=== PATIENT | female | born 1985 | race Caucasian/White ===

== ENCOUNTER 2018-11-11 11:45 | Inpatient (IN) | payer OTHER ==
[~2018-11-11 11:45] MED LIST: CITRIC ACID/SODIUM CITRATE 30 ML UNIT-DOSE CUP PO ONE; ELECTROLYTE-148 SOLN 1,000 ML IV SCH
[2018-11-11 12:19] VITALS: BMI 35.0
[2018-11-11] MEDS ORDERED: ELECTROLYTE-148 SOLN 1,000 ML IV SCH ×2 (12:45→14:15)
[2018-11-11] MEDS ORDERED: morphine SULFATE/PF 0.5 MG/ML (2cc Syringe - QUVA) EP ONE (13:53)
[2018-11-11] MEDS ORDERED: ONDANSETRON 4 MG/2 ML VIAL IVPUSH PRN (13:53)
[2018-11-11] MEDS ORDERED: morphine SULFATE/PF 0.5 MG/ML (2cc Syringe - QUVA) ONE (14:00)
[2018-11-11] MEDS ORDERED: ceFAZolin SODIUM 1 GM VIAL ONE (14:01)
[2018-11-11] MEDS ORDERED: CITRIC ACID/SODIUM CITRATE 30 ML UNIT-DOSE CUP PO ONE (14:03)
--- NOTE | 2018-11-11 14:21 | HP ---
Past Medical History - Primary Care Physician PCP:: Jori Galvez - Admission Chief Complaint: 39 weeks , previous c/s , for repeat c/s History of Present Illness: 32 yo f , 39 weeks with previous c/s , for repeat c/s ,risks discussed , ulteratives explained, cx clp, vx -4 mi, fhr cat 1, no contraction History Source: Patient Limitations to Obtaining History: No Limitations - Past Medical History ...: 2 ...Para: 1 ...Term: 1 ...: 0 ...Spon : 0 ...Induced : 0 ...LMP: 02/07/18 ... Weeks Gestation by Dates: 39.5 ...EDC by Dates: 11/14/18 ...EDC by Sono: 11/14/18 - Past Surgical History Past Surgical History: Yes: Hx Myomectomy: No Hx Transabdominal Cerclage: No - Smoking History Smoking history: Never smoked Have you smoked in the past 12 months: No - Alcohol/Substance Use Hx Alcohol Use: No - Social History Usual Living Arrangement: Yes: With Spouse History of Recent Travel: No Home Medications - Allergies Allergies/Adverse Reactions: Allergies Allergy/AdvReac Type Severity Reaction Status Date / Time No Known Allergies Allergy Verified 11/11/18 12:20 - Home Medications Home Medications: Ambulatory Orders Ceftriaxone [Rocephin -] 500 mg PO BID 11/11/18 Ferrous Sulfate 325 tab PO BID 11/11/18 Tablet 1 tab PO DAILY 11/11/18 Ibuprofen [Motrin -] 600 mg PO QID #28 tablet 11/13/18 Review of Systems - Review of Systems Constitutional: reports: No Symptoms Eyes: reports: No Symptoms HENT: reports: No Symptoms Neck: reports: No Symptoms Cardiovascular: reports: No Symptoms Respiratory: reports: No Symptoms Gastrointestinal: reports: No Symptoms Genitourinary: reports: No Symptoms Musculoskeletal: reports: No Symptoms Integumentary: reports: No Symptoms Neurological: reports: No Symptoms Endocrine: reports: No Symptoms Hematology/Lymphatic: reports: No Symptoms Psychiatric: reports: No Symptoms Physical Exam - Maternity Constitutional: Yes: Well Nourished, No Distress, Calm Eyes: Yes: WNL, Conjunctiva Clear, EOM Intact HENT: Yes: WNL, Atraumatic, Normocephalic Neck: Yes: WNL, Supple, Trachea Midline Cardiovascular: Yes: WNL, Regular Rate and Rhythm Breast(s): Yes: WNL - Abdominal Exam/OB Fundal Height: 40 Number of Fetuses: Single Presentation: Vertex Contractions: No Regularity: Irritability Intensity: Unaware Monitor Mode: External Heart Rate Location: [facility] Category: I Accelerations: Uniform Decelerations: None - Vaginal Exam/OB Vaginal Bleediing: No Speculum Exam: No Dilatation (cm): closed Effacement (%): 0 Amniotic Membrane Status: Intact Presentation: Vertex/Position Station: -4 - Physical Exam Musculoskeletal: Yes: WNL Edema: LLE: Trace, RLE: Trace ...Motor Strength: WNL Psychiatric: Yes: WNL Hemorrhage Risk Assessment - Risk Factors Medium Risk Factors: Yes: None High Risk Factors: Yes: None Risk Score: 1 Risk Level: Medium Risk Problem List - Problems (1) with 39 completed weeks gestation Code(s): Z3A.39 - 39 WEEKS GESTATION OF (2) Previous section complicating Code(s): O34.219 - MATERNAL CARE FOR UNSP TYPE SCAR FROM PREVIOUS DEL Assessment/Plan repeat c/s , risks discussed
[2018-11-11] MEDS ORDERED: OXYTOCIN 20 UNITS in 0.9% NS 40 UNIT/2,000 ML INFUS.BAG IV ONE (14:32)
[2018-11-11] MEDS ORDERED: OXYTOCIN 10 UNITS/ML VIAL ONE (14:44)
[2018-11-11] MEDS ORDERED: BENZOCAINE 20% 57 GM BOTTLE TP PRN (15:23)
[2018-11-11] MEDS ORDERED: diphenhydrAMINE HCL 25 MG CAPSULE (FP) PO PRN (15:23)
[2018-11-11] MEDS ORDERED: WITCH HAZEL 50% (TUCKS) 40 PAD/JAR PAD TP PRN (15:23)
[2018-11-11] MEDS ORDERED: BENZOCAINE 28 GM HEMORRHOIDAL OINTMENT PR PRN (15:23)
[2018-11-11] MEDS ORDERED: METHYLERGONOVINE MALEATE 0.2 MG/1 ML AMP IM PRN (15:23)
[2018-11-11] MEDS ORDERED: DEXTROSE 5%-LACTATED RINGERS 1,000 ML IV SCH (15:30)
[2018-11-11] MEDS ORDERED: OXYTOCIN 20 UNITS in 0.9% NS 20 UNIT/1,000 ML INFUS.BAG IV SCH (15:30)
[2018-11-11] MEDS ORDERED: IBUPROFEN 800 MG/8 ML IJ IVPB ONE (16:00)
[2018-11-11] MEDS: IBUPROFEN 800 MG/8 ML IJ IVPB PRN (16:05)
[2018-11-11] MEDS ORDERED: OXYTOCIN 20 UNITS in 0.9% NS 20 UNIT/1,000 ML INFUS.BAG IV ONE (17:35)
[2018-11-11] MEDS ORDERED: CEFAZOLIN 1 GM in DEXTROSE 5%-WATER - 50 ML IVPB SCH (18:00)
[2018-11-11] MEDS ORDERED: CEFAZOLIN 1 GM/D5W 1 GM/50 ML BAG IVPB SCH (18:34)
[2018-11-11] MEDS: CEFAZOLIN 1 GM/D5W 1 GM/50 ML BAG IVPB SCH (19:25)
--- NOTE | 2018-11-11 22:07 | OP ---
Operative Note - Note: Operative Date: 11/11/18 Pre-Operative Diagnosis: 39 weeks, previous c/s Operation: repeat LST c/s Findings: live baby girl, 9/9 , cord around body , ROT Surgeon: Jori Galvez Global Logistics Manager: Eugene Piedra Anesthesiologist/PRODUCTION SOLDERER: Christian Huizar Anesthesia: Spinal Specimens Removed: placenta Estimated Blood Loss (mls): 500 Drains & Tubes with Location: tariq Blood Volume Replaced (mls): 0 Operative Report Dictated: Yes
--- NOTE | 2018-11-12 00:45 | OP ---
DATE OF OPERATION: 11/11/2018 PREOPERATIVE DIAGNOSIS: at 39 weeks, previous section, requests repeat section. POSTOPERATIVE DIAGNOSIS: at 39 weeks, previous section, requests repeat section. PROCEDURE: Repeat low segment transverse section. SURGEON: Abhijeet Galvez MD ALUMINUM POURER: YOANDY Guillen ANESTHESIA: Spinal. ANESTHESIOLOGIST: Madhav Huizar MD ESTIMATED BLOOD LOSS: 500 mL. FINDINGS: Live baby girl, Apgars 9 and 9, cord around the body x1, ROT position. DESCRIPTION OF PROCEDURE: Patient was taken to the operating room and had adequate spinal anesthesia. Abdomen and perineum were prepped and draped. Pfannenstiel abdominal skin incision was made over the previous incision. Abdominal wall was cut layer by layer until the peritoneum was exposed and incised. Upon entry into the abdominal cavity, lower uterine segment was identified. The uterovesical flap was established. The bladder was pushed down. A low transverse uterine incision was made. Incision was extended laterally with bandage scissors. Amniotic sac was entered with clear fluid. The head was delivered from the right occiput transverse position. Nasal sinuses were suctioned. The live baby girl was delivered without any difficulty. Cord around the body once. Placenta was delivered manually. Uterine cavity was cleaned of all remaining tissue. Uterine incision was closed in 2 layers. The first layer was with 0 Biosyn continuous suture and the second layer with 0 Biosyn imbricating the first layer. Bladder flap was closed with 0 Biosyn continuous suture. Both tubes and ovaries were checked and were normal. No active bleeding was seen. All of the lap pad, sponge, and instrument counts were correct. The peritoneum was closed with 0 Biosyn continuous suture. Muscles were brought together with interrupted sutures of 0 Biosyn. Fascia was closed with 0 Biosyn continuous suture, subcutaneous fat with interrupted suture of 0 Biosyn, and the skin was closed with 3-0 Biosyn subcuticular continuous suture. Patient tolerated the procedure well and left the OR in good condition. ABHIJEET GALVEZ M.D. [id number]
[2018-11-12] MEDS: CEFAZOLIN 1 GM/D5W 1 GM/50 ML BAG IVPB SCH (01:36)
[2018-11-12] MEDS: IBUPROFEN 800 MG/8 ML IJ IVPB PRN (02:22)
--- NOTE | 2018-11-12 07:51 | PN ---
Progress Note (short form) - Note Progress Note: pod 1 s/p repeat c/s , doing well, no c/o , no excess vaginal bleeding Last Vital Signs Temp Pulse Resp BP Pulse Ox 98.1 F 64 18 112/64 99 11/12/18 06:00 11/12/18 06:00 11/12/18 06:00 11/12/18 06:00 11/11/18 15:21 abdomen soft, no distension, no cva , BS present incision dry, clean no calf tenderness no excess vaginal bleeding plan ambulate, cbc pain management , advance diet Problem List - Problems (1) with 39 completed weeks gestation Code(s): Z3A.39 - 39 WEEKS GESTATION OF (2) Previous section complicating Code(s): O34.219 - MATERNAL CARE FOR UNSP TYPE SCAR FROM PREVIOUS DEL
[2018-11-12 08:17] LABS: BASO % 0.2 % (0-2.0); EOS % 0.8 % (0-4.5); HEMATOCRIT 34.3 % (32.4-45.2); HEMOGLOBIN 11.6 GM/dL (10.7-15.3); LYMPH % 13.8 % (8-40); MCH 28.8 pg (25.7-33.7); MCHC 33.9 g/dl (32.0-36.0); MEAN CELL VOLUME 84.8 fl (80-96); MEAN PLT VOLUME 8.9 fl (7.5-11.1); MONO % 6.2 % (3.8-10.2); PLATELET COUNT 178 K/MM3 (134-434); RBC 4.04 M/mm3 (3.60-5.2); RDW 14.9 % (11.6-15.6); WHITE BLOOD COUNT 8.3 K/mm3 (4.0-10.0)
[2018-11-12] MEDS: ENOXAPARIN NA (PORCINE) 40 MG/0.4 ML DISP.SYRIN SQ SCH (09:39)
[2018-11-12] MEDS ORDERED: FLU VACCINE QUAD 60 MCG/0.5 ML (MDV 19-20) IM ONE (10:00)
[2018-11-12] MEDS ORDERED: FLU VACC QS2019-20(6MOS UP)/PF 60 MCG/0.5 ML SYRINGE IM ONE (10:00)
[2018-11-12] MEDS ORDERED: DIPHTH,PERTUSS(ACELL),TET 0.5 ML DISP.SYRIN IM ONE (10:00)
--- NOTE | 2018-11-12 10:05 | PN ---
Progress Note (short form) - Note Progress Note: Anesthesia postop note 32 y/o F s/p spinal anesthesia/duramorph for section POD#1, vss, aaox3, sensory motor intact distally, pain well controlled. No anesthesia complications.
[2018-11-12] MEDS: SIMETHICONE 80 MG TAB.CHEW (FP) PO PRN (10:13)
[2018-11-12] MEDS: oxyCODONE HCL 5 MG TABLET PO PRN ×2 (10:14→18:04)
[2018-11-12] MEDS: IBUPROFEN 600 MG TABLET (FP) PO PRN ×2 (10:14→17:58)
[2018-11-13] MEDS: SENNOSIDES/DOCUSATE COMBO (SENNA PLUS) TABLET (UD) PO PRN ×2 (00:44→20:02)
[2018-11-13] MEDS: oxyCODONE HCL 5 MG TABLET PO PRN ×6 (00:44→20:01)
[2018-11-13] MEDS: SIMETHICONE 80 MG TAB.CHEW (FP) PO PRN ×5 (00:44→20:01)
[2018-11-13] MEDS: IBUPROFEN 600 MG TABLET (FP) PO PRN ×5 (00:45→20:02)
[2018-11-13] MEDS: ENOXAPARIN NA (PORCINE) 40 MG/0.4 ML DISP.SYRIN SQ SCH (10:00)
--- NOTE | 2018-11-13 10:23 | PN ---
Progress Note (short form) - Note Progress Note: pod 2 doing well, ambulating CBC, BMP 11/12/18 07:40 Last Vital Signs Temp Pulse Resp BP Pulse Ox 98.4 F 66 20 132/74 99 11/12/18 22:00 11/12/18 22:00 11/12/18 22:00 11/12/18 22:00 11/11/18 15:21 abdomen soft, no distension, no cva uterus firm incision dry, clean no calf tenderness lochia minimal plan ambulate, pain management Problem List - Problems (1) with 39 completed weeks gestation Code(s): Z3A.39 - 39 WEEKS GESTATION OF (2) Previous section complicating Code(s): O34.219 - MATERNAL CARE FOR UNSP TYPE SCAR FROM PREVIOUS DEL
[2018-11-13] MEDS: BISACODYL 10 MG SUPP.RECT RC PRN (21:20)
[2018-11-14] MEDS: IBUPROFEN 600 MG TABLET (FP) PO PRN ×5 (00:14→21:29)
[2018-11-14] MEDS: oxyCODONE HCL 5 MG TABLET PO PRN ×3 (00:15→11:47)
[2018-11-14] MEDS: SIMETHICONE 80 MG TAB.CHEW (FP) PO PRN ×5 (06:10→21:29)
[2018-11-14 09:10] LABS: BASO % 0.2 % (0-2.0); EOS % 2.7 % (0-4.5); HEMATOCRIT 30.9 % (32.4-45.2); HEMOGLOBIN 10.5 GM/dL (10.7-15.3); LYMPH % 18.9 % (8-40); MCH 28.9 pg (25.7-33.7); MCHC 33.9 g/dl (32.0-36.0); MEAN CELL VOLUME 85.2 fl (80-96); MEAN PLT VOLUME 8.8 fl (7.5-11.1); MONO % 7.6 % (3.8-10.2); NEUT % 70.6 % (42.8-82.8); PLATELET COUNT 195 K/MM3 (134-434); RBC 3.62 M/mm3 (3.60-5.2); RDW 14.8 % (11.6-15.6); WHITE BLOOD COUNT 6.7 K/mm3 (4.0-10.0)
[2018-11-14] MEDS: ENOXAPARIN NA (PORCINE) 40 MG/0.4 ML DISP.SYRIN SQ SCH (10:00)
--- NOTE | 2018-11-14 10:51 | PN ---
Progress Note (short form) - Note Progress Note: pod 3 s/p repeat c/s doing well, ambulating, had BM CBC, BMP 11/14/18 07:18 Last Vital Signs Temp Pulse Resp BP Pulse Ox 98.1 F 95 H 20 131/76 99 11/13/18 22:00 11/13/18 22:00 11/13/18 22:00 11/13/18 22:00 11/11/18 15:21 abdomen soft , no distension, no cva incision dry, clean no calf tenderness plan ambulate, plan for d/c home in am Problem List - Problems (1) with 39 completed weeks gestation Code(s): Z3A.39 - 39 WEEKS GESTATION OF (2) Previous section complicating Code(s): O34.219 - MATERNAL CARE FOR UNSP TYPE SCAR FROM PREVIOUS DEL
[2018-11-14] MEDS ORDERED: oxyCODONE HCL 5 MG TABLET PO PRN (12:41)
[2018-11-14] MEDS: ACETAMINOPHEN 325 MG TABLET (FP) PO PRN ×2 (17:04→21:29)
[2018-11-14] MEDS: BISACODYL 10 MG SUPP.RECT RC PRN (21:30)
[2018-11-14] MEDS: SENNOSIDES/DOCUSATE COMBO (SENNA PLUS) TABLET (UD) PO PRN (21:30)
[2018-11-15] MEDS: ACETAMINOPHEN 325 MG TABLET (FP) PO PRN ×4 (02:24→16:50)
[2018-11-15] MEDS: IBUPROFEN 600 MG TABLET (FP) PO PRN ×4 (02:25→16:51)
[2018-11-15] MEDS: SIMETHICONE 80 MG TAB.CHEW (FP) PO PRN ×3 (07:25→16:50)
[2018-11-15] MEDS: ENOXAPARIN NA (PORCINE) 40 MG/0.4 ML DISP.SYRIN SQ SCH (10:02)
[2018-11-15 12:05] VITALS: BP 124/77; PULSE 61; TEMP 97.9
--- NOTE | 2018-11-15 14:00 | DS ---
Physical Exam-SQUADRON WORKER Vital Signs: Vital Signs Temperature 97.9 F 11/15/18 10:00 Pulse Rate 61 11/15/18 10:00 Respiratory Rate 20 11/15/18 10:00 Blood Pressure 124/77 11/15/18 10:00 O2 Sat by Pulse Oximetry (%) 99 11/11/18 15:21 Constitutional: Yes: Well Nourished, No Distress, Calm Eyes: Yes: WNL, Conjunctiva Clear, EOM Intact HENT: Yes: WNL, Atraumatic, Normocephalic Neck: Yes: WNL, Supple, Trachea Midline Cardiovascular: Yes: WNL, Regular Rate and Rhythm Respiratory: Yes: WNL, Regular, CTA Bilaterally Gastrointestinal: Yes: WNL ...Rectal Exam: Yes: WNL Renal/: Yes: WNL ....Post : Yes: Uterus firm, Uterus non-tender, Slight lochia rubra Breast(s): Yes: WNL Musculoskeletal: Yes: WNL Extremities: Yes: WNL Integumentary: Yes: WNL Wound/Incision: Yes: Clean/Dry, Well Approximated, Sutures Intact Neurological: Yes: WNL, Alert, Oriented ...Motor Strength: WNL Psychiatric: Yes: WNL, Alert, Oriented Labs: CBC, BMP 11/14/18 07:18 Delivery - Delivery Section: Repeat, Low Flap Transverse Type of Anesthesia: Spinal EBL (cc): 500 Delivery, Single - Stages of Labor Date of Delivery: 11/11/18 Time of Delivery: 14:36 Time Placenta Delivered: 14:38 Placenta: Yes: Expressed - Condition of Greige Goods Examiner/Pattern Painter Present: Yes Name: Doris Nicole Gender: Female Weight: 7 lb 3 oz Position: Right, OT Total Hours ROM (Hrs/Mins): 2 minutes - 1 Minute Total Score: 9 5 Minutes Total Score: 9 - [place] Feeding Plan Initial Plan: Exclusive throughout hospitalization Discharge Summary Reason For Visit: Current Active Problems with 39 completed weeks gestation (Acute) Previous section complicating (Acute) Procedures: Principal: repeat LST c/s Hospital Course: no complication Condition: Good - Instructions Diet, Activity, Other Instructions: regular diet, no intercourse , follow up [facility] care 1 week, if fever, pain, heavy vaginal bleeding call md Referrals: Jori Galvez MD [Staff Physician] - Disposition: HOME - Home Medications Comprehensive Discharge Medication List: Ambulatory Orders Ceftriaxone [Rocephin -] 500 mg PO BID 11/11/18 Ferrous Sulfate 325 tab PO BID 11/11/18 Tablet 1 tab PO DAILY 11/11/18 Ibuprofen [Motrin -] 600 mg PO QID #28 tablet 11/13/18
--- NOTE | 2018-11-16 09:22 | PATH ---
Surgical Pathology Report Patient Name: RADHA JANSEN Med. Rec. #: [id number] /Age/Gender: 1985 (Age: 32) / F Account: [id number] Location: [facility] OBS/BULL FIDDLE PLAYER Taken: 11/11/2018 Received: 11/12/2018 Reported: 11/16/2018 Physicians: Jori Galvez M.D. Specimen(s) Received PLACENTA Clinical History 2013, 39.5 weeks gestation Final Diagnosis PLACENTA: THIRD TRIMESTER PLACENTA. TRIVASCULAR CORD. MEMBRANES WITH NO DIAGNOSTIC ABNORMALITIES. Electronically Signed Christi Thomas M.D. Gross Description The specimen is received fresh labeled placenta and is a 572gram, 19 x15 x 3.0cm. placenta with attached membranes and umbilical cord. The attached membranes are glistening, translucent, and insert marginally. The umbilical cord measures 50 cm. in length and averages 1.0 cm. in diameter. The cord inserts eccentrically, 2 centimeter to the nearest margin. No true knots or strictures are identified. Cut surface of the umbilical cord reveals 3 vessels. Sectioning reveals red-brown, spongy parenchyma. No lesions are identified. Direct Marketing Representative sections are submitted in three cassettes as follows: 1- membrane rolls and umbilical cord; 2-3- full thickness sections of placenta KWS/11/12/2018 courtneyki/11/12/2018
== END 2018-11-15 18:00 | disposition home or self-care (01) | DRG 788 ==
LOC: JLDR 11:45 → J3W 18:22
PROVIDERS: ADMIT Obstetrics & Gynecology; ATTEND Obstetrics & Gynecology
PROC: 10D00Z1 Extraction of Products of Conception, Low, Open Approach (ICD-10-PCS; principal; 2018-11-11)
DX: O34.211 Maternal care for low transverse scar from previous cesarean delivery (principal); N85.8 Other specified noninflammatory disorders of uterus; Z3A.39 39 weeks gestation of pregnancy; Z37.0 Single live birth
CPT/HCPCS: 36415; 85025; 88307-TC; 90686